=== PATIENT | female | born 1970 | race Caucasian/White ===

== ENCOUNTER 2016-04-18 10:48 | Emergency (ER) | payer OTHER ==
[~2016-04-18] VITALS: Ht 165.1 cm; Wt 140.5 kg
[~2016-04-18 10:48] MED LIST: ADVAIR 250/501 DISK IH; ASPIR-TRIN325 M1 PO; BACTRIM,SEPT1 TABLET PO; BACTROBAN OINTM22 GM TP; BENADRYL25 MG PO; BOTOX100 UNITS IJ; CHANTIX1 EACH PO; CIPRO500 MG PO; CIPROFLOXACIN H10 ML RIGHT EYE; CLEOCIN300 MG PO; CLONIDINE HCL0.2 MG PO; CYCLOBENZAPRINE10 MG PO; EFFEXOR XR150 MG PO; ENDOCET 5-3251 EACH PO; FLAGYL500 MG PO; FLEXERIL10 MG PO; FUROSEMIDE20 MG PO; IMITREX25 MG PO; IRON325 M1 PO; LICE TREATMENT118 ML TP; LORTAB 5-325 M1 EACH PO; Levaquin PO; METOPROLOL SUC100 MG PO; MONTELUKAST SOD10 MG PO; MOTRIN800 MG PO; NAPROSYN250 MG PO; NOHOMEMEDS; NORTRIPTYLINE H25 MG PO; NORTRIPTYLINE H50 MG PO; OXYBUTYNIN CHLO10 MG PO; OXYCODONE-APAP1 EACH PO; PEPCID20 MG PO; PERCOCET 5/31 TABLET PO; PROAIR HFA8.5 GM IH; PROVIGIL200 MG PO; SIMVASTATIN20 MG PO; SIMVASTATIN40 MG PO; TOPAMAX50 MG PO; TRAMADOL HCL50 MG PO; TROKENDI XR200 MG PO; Tamiflu PO; ULTRAM50 MG PO; ZITHROMAX Z-PA250 MG PO; ZOFRAN4 MG PO; ZYRTEC10 M3 PO
[2016-04-18] MEDS ORDERED: ENDOCET 5-3251 EACH PO (11:31)
[2016-04-18] MEDS ORDERED: FIORICET,ESG1 TABLET PO (12:05)
[2016-04-18 12:13] VITALS: BP 118/80
== END 2016-04-18 12:14 | disposition home or self-care (01) ==
LOC: EME 10:48 → RME 10:48
DX: R51 Headache (principal); J45.909 Unspecified asthma, uncomplicated; E78.5 Hyperlipidemia, unspecified; G47.30 Sleep apnea, unspecified; R73.03 Prediabetes; F17.200 Nicotine dependence, unspecified, uncomplicated
CPT/HCPCS: 99281; 99284; J0780; J1100

== ENCOUNTER 2016-05-30 12:40 | Emergency (ER) | payer OTHER ==
[~2016-05-30] VITALS: Ht 165.1 cm; Wt 140.7 kg
[~2016-05-30 12:40] MED LIST changes: +FIORICET,ESG1 TABLET PO
[2016-05-30] MEDS ORDERED: BACTRIM,SEPT1 TABLET PO (12:54)
[2016-05-30 14:29] VITALS: BP 110/94
== END 2016-05-30 14:30 | disposition home or self-care (01) ==
LOC: EME 12:40
PROC: 0H91XZZ Drainage of Face Skin, External Approach (ICD-10-PCS; principal; 2016-05-30)
DX: L02.01 Cutaneous abscess of face (principal); J45.909 Unspecified asthma, uncomplicated; E78.5 Hyperlipidemia, unspecified; R73.03 Prediabetes; G47.30 Sleep apnea, unspecified; F17.200 Nicotine dependence, unspecified, uncomplicated
CPT/HCPCS: 99281; 99284